=== PATIENT | male | born 1950 | race Caucasian/White ===

== ENCOUNTER 2016-07-02 10:18 | Outpatient (CLI) | payer MEDICARE, OTHER | END 2016-07-02 10:19 | disposition home or self-care (01) | DX: N40.0 Benign prostatic hyperplasia without lower urinary tract symptoms (principal) ==

== ENCOUNTER 2018-01-27 07:20 | Outpatient (CLI) | payer MEDICARE, OTHER | END 2018-01-27 07:21 | disposition home or self-care (01) | LOC: LAB.WCP 07:20 | PROVIDERS: ATTEND Urology | DX: Z12.5 Encounter for screening for malignant neoplasm of prostate (principal) | CPT/HCPCS: 36415; G0103; 84153 ==

== ENCOUNTER 2018-03-18 09:10 | Outpatient (CLI) | payer MEDICARE, OTHER | END 2018-03-18 09:11 | LOC: LAB.WCP 09:10 | PROVIDERS: ATTEND Urology | DX: R31.0 Gross hematuria (principal) | CPT/HCPCS: 36415; 82565; 84520 ==

== ENCOUNTER 2018-04-01 07:15 | Outpatient (CLI) | payer MEDICARE, OTHER ==
[2018-04-01] MEDS ORDERED: IOVERSOL 320 100 ML VIAL IVP ONE ×2 (07:25→07:48)
--- NOTE | 2018-04-01 09:53 | CT Report ---
Reason: GROSS HEMATURIA Procedure Date: 04/01/2018 Accession Number: [id number] / [id number] Procedure: CT - IVP CPT Code: FULL RESULT: EXAM: CT ABDOMEN AND PELVIS WITHOUT AND WITH CONTRAST (CT IVP) EXAM DATE: 04/01/2018 07:31 AM. CLINICAL HISTORY: Gross hematuria. COMPARISONS: None. TECHNIQUE: Routine helical imaging was performed through the kidneys, ureters and bladder in the precontrast, postcontrast and delayed phase. IV Contrast: ISOVUE 320 100mL. Reconstructions: Coronal and sagittal. In accordance with CT protocol optimization, one or more of the following dose reduction techniques were utilized for this exam: automated exposure control, adjustment of mA and/or KV based on patient size, or use of iterative reconstructive technique. FINDINGS: Lung Bases: Unremarkable. Right Kidney/Ureter: 6 cm right upper pole simple renal cyst. No stones, hydronephrosis, or solid masses. Left Kidney/Ureter: No stones, hydronephrosis, or masses. Other Solid Organs: There are multiple bilateral hypodense liver lesions, the largest of which demonstrates An Irregular lobulated margin with an almost nodular appearance. While this is not diagnostic, this is a relatively typical appearance of hemangioma in the late contrast phase presented here. Other hepatic hypodensities are too small to characterize. The spleen, pancreas, gallbladder, and adrenal glands are unremarkable.The bile ducts are unremarkable. Peritoneal Cavity/Bowel: Normal. No free fluid, free air or adenopathy. No masses. Bowel loops are unremarkable. Pelvic Organs: Fiducial markers are noted in the prostate. No bladder stones, obstruction or masses. Vasculature: Mild atherosclerosis. Bones: No aggressive osseous lesions. Other: None. IMPRESSION: Normal CT IVP. No suspicious urinary tract masses, stones or obstruction. Uncharacterized hepatic hypodensities. For definitive characterization, CT multiphase liver protocol or MRI multiphase liver protocol can be considered. RADIA
== END 2018-04-01 07:16 | disposition home or self-care (01) ==
LOC: DI 07:15
PROVIDERS: ATTEND Urology
DX: R31.0 Gross hematuria (principal); K76.9 Liver disease, unspecified
CPT/HCPCS: 74178; Q9967

== ENCOUNTER 2018-07-10 08:00 | Outpatient (CLI) | payer MEDICARE, OTHER | END 2018-07-10 23:59 | disposition home or self-care (01) | LOC: LAB.WCP 08:00 | PROVIDERS: ATTEND Radiology Radiation Oncology | DX: C61 Malignant neoplasm of prostate (principal) | CPT/HCPCS: 36415; 84153 ==

== ENCOUNTER 2018-07-22 07:26 | Outpatient (CLI) | payer MEDICARE, OTHER ==
--- NOTE | 2018-07-22 11:01 | Ultrasound Report ---
Reason: HISTORY OF NEPHROLITHIASIS Procedure Date: 07/22/2018 Accession Number: [id number] / [id number] Procedure: US - Retroperitoneal CPT Code: FULL RESULT: EXAM: RENAL ULTRASOUND EXAM DATE: 07/22/2018 08:00 AM. CLINICAL HISTORY: History of nephrolithiasis. COMPARISON: IVP 04/01/2018 7:31 AM. TECHNIQUE: Real-time scanning was performed with static images obtained. FINDINGS: Right Kidney: 12.1 x 5.5 x 4.9. cm. Normal echotexture with no stones, contour-deforming masses, or hydronephrosis. Exophytic thin-walled anechoic simple cyst measuring 7.9 cm off the superior pole, little changed compared to comparison CT. Left Kidney: 11.8 x 5.2 x 5.6. cm. Normal echotexture with no contour-deforming masses or hydronephrosis. 1 cm exophytic simple-appearing cyst upper pole. 4 mm nonshadowing midpole stone. Bladder: Bilateral jets seen. The prevoid bladder volume was 81.3 cc. The postvoid bladder volume was 59.5 cc. Other: None. IMPRESSION: 1. Stable appearance of large simple cyst of the upper pole right kidney. 2. Nonobstructive left mid pole nephrolithiasis. 3. Small to moderate postvoiding residual. RADIA
== END 2018-07-22 07:27 | disposition home or self-care (01) ==
LOC: DI 07:26
PROVIDERS: ATTEND Urology
DX: N28.89 Other specified disorders of kidney and ureter (principal); N20.0 Calculus of kidney; N28.1 Cyst of kidney, acquired
CPT/HCPCS: 76770

== ENCOUNTER 2018-11-26 08:26 | Outpatient (CLI) | payer MEDICARE, OTHER | END 2018-11-26 08:27 | disposition home or self-care (01) | LOC: LAB.WCP 08:26 | PROVIDERS: ATTEND Urology | DX: C61 Malignant neoplasm of prostate (principal) | CPT/HCPCS: 36415; 84153 ==

== ENCOUNTER 2018-12-04 | Outpatient (CLI) | payer MEDICARE, OTHER | END 2018-12-04 23:59 | disposition home or self-care (01) ==

== ENCOUNTER 2018-12-16 14:49 | Outpatient (CLI) | payer MEDICARE, OTHER ==
--- NOTE | 2018-12-19 14:55 | XRAY Report ---
Reason: KNEE PAIN,RT Procedure Date: 12/16/2018 Accession Number: [id number] / [id number] Procedure: XR - Knee 3 View RT CPT Code: FULL RESULT: EXAM: RIGHT KNEE RADIOGRAPHY EXAM DATE: 12/16/2018 03:03 PM. CLINICAL HISTORY: Right knee pain. COMPARISON: None. TECHNIQUE: 3 views. FINDINGS: Bones: Normal. No fractures or bone lesions. Joints: Minimal spurring. No effusion. No subluxations. Soft Tissues: Unremarkable. IMPRESSION: Mild osteoarthritis. Kellgren Caleb Grade 1. Kellgren and Caleb classification of osteoarthritis: Grade 0: no radiographic features of osteoarthritis are present Grade 1: doubtful joint space narrowing (JSN) and possible osteophytic lipping Grade 2: definite osteophytes and possible JSN on anteroposterior weight-bearing radiograph Grade 3: multiple osteophytes, definite JSN, sclerosis, possible bony deformity Grade 4: large osteophytes, marked JSN, severe sclerosis and definite bony deformity RADIA
== END 2018-12-16 14:50 | disposition home or self-care (01) ==
LOC: DI 14:49
PROVIDERS: ATTEND Physician Assistant Medical
DX: M17.11 Unilateral primary osteoarthritis, right knee (principal)

== ENCOUNTER 2019-06-30 10:30 | Outpatient (CLI) | payer MEDICARE, OTHER | END 2019-06-30 23:59 | disposition home or self-care (01) | LOC: LAB.WCP 10:30 | PROVIDERS: ATTEND Urology | DX: C61 Malignant neoplasm of prostate (principal) | CPT/HCPCS: 36415; 84153 ==

== ENCOUNTER 2020-01-21 09:00 | Outpatient (CLI) | payer MEDICARE, OTHER | END 2020-01-21 23:59 | disposition home or self-care (01) | LOC: LAB.WCP 09:00 | PROVIDERS: ATTEND Radiology Radiation Oncology | DX: Z85.46 Personal history of malignant neoplasm of prostate (principal) | CPT/HCPCS: 36415; 84153 ==

== ENCOUNTER 2020-08-01 15:19 | Outpatient (CLI) | payer MEDICARE, OTHER ==
[2020-08-01 17:43] LABS: BASOPHILS # (AUTO) 0.1 10^3/uL (0.0-0.1); BASOPHILS % (AUTO) 0.8 %; EOSINOPHILS # (AUTO) 0.1 10^3/uL (0.0-0.7); EOSINOPHILS % (AUTO) 2.3 %; HCT - HEMATOCRIT 45.1 % (42.0-52.0); HGB - HEMOGLOBIN 15.3 g/dL (14.0-18.0); LYMPHOCYTES # (AUTO) 1.9 10^3/uL (1.5-3.5); LYMPHOCYTES % (AUTO) 30.9 %; MEAN CORPUSCULAR HEMOGLOBIN 32.1 pg (27.0-31.0); MEAN CORPUSCULAR HGB CONC 33.9 g/dL (32.0-36.0); MEAN CORPUSCULAR VOLUME 94.5 fL (80.0-94.0); MEAN PLATELET VOLUME 10.2 fL (7.4-11.4); MONOCYTES # (AUTO) 0.5 10^3/uL (0.0-1.0); MONOCYTES % (AUTO) 8.8 %; NEUTROPHILS # (AUTO) 3.5 10^3/uL (1.5-6.6); NEUTROPHILS % (AUTO) 56.9 %; PLT - PLATELET COUNT 258 10^3/uL (130-450); RED BLOOD COUNT 4.77 10^6/uL (4.70-6.10); RED CELL DISTRIBUTION WIDTH 13.1 % (12.0-15.0); WHITE BLOOD COUNT 6.1 x10^3/uL (4.8-10.8)
[2020-08-01 18:11] LABS: ALBUMIN 4.3 g/dL (3.2-5.5); ALBUMIN/GLOBULIN RATIO 1.5 (1.0-2.2); ALKALINE PHOSPHATASE 47 IU/L (42-121); ALT ALANINE AMINOTRANSFERASE 20 IU/L (10-60); AST ASPARTATE AMINOTRANSFERASE 20 IU/L (10-42); BILIRUBIN,TOTAL 0.9 mg/dL (0.2-1.0); BUN - BLOOD UREA NITROGEN 21 mg/dL (6-20); CALCIUM 9.1 mg/dL (8.5-10.3); CARBON DIOXIDE - CO2 23 mmol/L (21-32); CHLORIDE 105 mmol/L (101-111); CHOL/HDL RATIO 2.9 (<5.0); CHOLESTEROL 123 mg/dL; CREATININE 0.9 mg/dL (0.6-1.2); GFR - MDRD 83 (>89); GLUCOSE 92 mg/dL (70-100); HDL CHOLESTEROL 42 mg/dL; LDL CHOLESTEROL,CALCULATED 63 mg/dL; LDL/HDL RATIO 1.5 (<3.6); POTASSIUM 4.1 mmol/L (3.5-5.0); SODIUM 136 mmol/L (135-145); TOTAL PROTEIN 7.2 g/dL (6.7-8.2); TRIGLYCERIDES 90 mg/dL; VLDL CHOLESTEROL 18 mg/dL
== END 2020-08-01 23:59 | disposition home or self-care (01) ==
LOC: LAB.WCP 15:19
PROVIDERS: ATTEND Physician Assistant Medical
DX: E78.5 Hyperlipidemia, unspecified (principal); C61 Malignant neoplasm of prostate; J44.9 Chronic obstructive pulmonary disease, unspecified
CPT/HCPCS: 36415; 80053; 80061; 83721; 84153; 85025

== ENCOUNTER 2020-08-25 09:05 | Outpatient (CLI) | payer MEDICARE, OTHER ==
--- NOTE | 2020-08-25 12:30 | CT Report ---
PROCEDURE: Low Dose Lung Cancer Screen INDICATIONS: HX OF SMOKING TECHNIQUE: Noncontrast low-dose 5 mm thick sections acquired from the pulmonary apices to the posterior costophr enic angles. 7 mm thick coronal and sagittal MIP reformats were then acquired. For radiation dose r eduction, the following was used: automated exposure control, adjustment of mA and/or kV according t o patient size. COMPARISON: CT chest 04/29/2015, CT IVP 04/01/2018 FINDINGS: Image quality: Excellent. Lungs and pleura: No effusions or consolidations. No visualized masses or nodules. Mediastinum: Heart size is normal. Unchanged appearance of mild anterior pericardial effusion. No m ediastinal adenopathy by size criteria. Thoracic aorta and central pulmonary arteries are normal in size. Esophagus is normal in caliber. No hiatal hernia. Bones and chest wall: No suspicious bony lesions. No vertebral body compression fractures. No axil amina or supraclavicular adenopathy by size criteria. Thyroid is poorly visualized secondary to artif act. Abdomen: Low-attenuation focus in the anterior superior hepatic dome measures 2.1 cm AP by 2.2 cm tra nsverse compared to 1.4 cm AP by 2.2 cm transverse. Hounsfield units measure approximately 16. Otherw ise, visualized upper abdomen solid organs and bowel loops appear normal in the absence of contrast. IMPRESSION: 1. Lungs are clear. 2. Low-attenuation hepatic structure mildly enlarged with Hounsfield units most suggestive of hepatic cyst. Lung rads category 1. Recommend annual screening follow-up. Reviewed by: Baylee Vivas MD on 08/25/2020 12:29 PM PDT Approved by: Baylee Vivas MD on 08/25/2020 12:29 PM PDT Station ID: [id number]
== END 2020-08-25 09:06 | disposition home or self-care (01) ==
LOC: DI 09:05
PROVIDERS: ATTEND Physician Assistant Medical
DX: Z12.2 Encounter for screening for malignant neoplasm of respiratory organs (principal); R93.2 Abnormal findings on diagnostic imaging of liver and biliary tract; F17.219 Nicotine dependence, cigarettes, with unspecified nicotine-induced disorders

== ENCOUNTER 2021-01-11 14:42 | Outpatient (CLI) | payer MEDICARE, OTHER | END 2021-01-11 23:59 | disposition home or self-care (01) | LOC: LAB.WCP 14:42 | PROVIDERS: ATTEND Radiology Radiation Oncology | DX: C61 Malignant neoplasm of prostate (principal) | CPT/HCPCS: 36415; 84153 ==

== ENCOUNTER 2021-05-09 07:00 | Outpatient (CLI) | payer MEDICARE, OTHER ==
[2021-05-09 18:19] LABS: BASOPHILS % (AUTO) 0.8 %; EOSINOPHILS # (AUTO) 0.2 10^3/uL (0.0-0.7); EOSINOPHILS % (AUTO) 3.2 %; HCT - HEMATOCRIT 47.2 % (42.0-52.0); HGB - HEMOGLOBIN 15.6 g/dL (14.0-18.0); LYMPHOCYTES # (AUTO) 1.7 10^3/uL (1.5-3.5); LYMPHOCYTES % (AUTO) 32.4 %; MEAN CORPUSCULAR HEMOGLOBIN 31.6 pg (27.0-31.0); MEAN CORPUSCULAR HGB CONC 33.1 g/dL (32.0-36.0); MEAN CORPUSCULAR VOLUME 95.7 fL (80.0-94.0); MEAN PLATELET VOLUME 10.3 fL (7.4-11.4); MONOCYTES # (AUTO) 0.6 10^3/uL (0.0-1.0); MONOCYTES % (AUTO) 10.8 %; NEUTROPHILS # (AUTO) 2.8 10^3/uL (1.5-6.6); NEUTROPHILS % (AUTO) 52.4 %; PLT - PLATELET COUNT 260 10^3/uL (130-450); RED BLOOD COUNT 4.93 10^6/uL (4.70-6.10); RED CELL DISTRIBUTION WIDTH 13.3 % (12.0-15.0); WHITE BLOOD COUNT 5.3 x10^3/uL (4.8-10.8)
[2021-05-09 18:34] LABS: ALBUMIN/GLOBULIN RATIO 1.3 (1.0-2.2); ALKALINE PHOSPHATASE 48 IU/L (42-121); ALT ALANINE AMINOTRANSFERASE 16 IU/L (10-60); AST ASPARTATE AMINOTRANSFERASE 16 IU/L (10-42); BILIRUBIN,TOTAL 0.5 mg/dL (0.2-1.0); BUN - BLOOD UREA NITROGEN 25 mg/dL (6-20); CALCIUM 9.2 mg/dL (8.5-10.3); CARBON DIOXIDE - CO2 26 mmol/L (21-32); CHLORIDE 107 mmol/L (101-111); CHOL/HDL RATIO 2.8 (<5.0); CHOLESTEROL 122 mg/dL; GFR - MDRD 73 (>89); GLUCOSE 100 mg/dL (70-100); HDL CHOLESTEROL 44 mg/dL; LDL CHOLESTEROL,CALCULATED 58 mg/dL; LDL/HDL RATIO 1.3 (<3.6); POTASSIUM 4.3 mmol/L (3.5-5.0); SODIUM 141 mmol/L (135-145); TOTAL PROTEIN 7.1 g/dL (6.7-8.2); TRIGLYCERIDES 100 mg/dL; VLDL CHOLESTEROL 20 mg/dL
== END 2021-05-09 23:59 | disposition home or self-care (01) ==
LOC: LAB.WCP 07:00
PROVIDERS: ATTEND Physician Assistant Medical
DX: E78.5 Hyperlipidemia, unspecified (principal); J44.9 Chronic obstructive pulmonary disease, unspecified
CPT/HCPCS: 36415; 80053; 80061; 83721; 85025

== ENCOUNTER 2021-07-27 13:05 | Outpatient (CLI) | payer MEDICARE, OTHER | END 2021-07-27 13:06 | disposition home or self-care (01) | LOC: LAB.N 13:05 | PROVIDERS: ATTEND Urology | DX: C61 Malignant neoplasm of prostate (principal) | CPT/HCPCS: 36415; 84153 ==

== ENCOUNTER 2022-02-06 09:41 | Outpatient (CLI) | payer MEDICARE, OTHER ==
--- NOTE | 2022-02-06 13:42 | XRAY Report ---
PROCEDURE: Abdomen 1 View X-Ray INDICATIONS: NEPHROLITHIASIS TECHNIQUE: One view of the abdomen acquired. COMPARISON: Ultrasound kidneys 07/22/2018 FINDINGS: Surgical changes and devices: None. Bowel: Bowel gas pattern is normal. Soft tissues: No suspicious abdominal calcifications. Visualized solid organ contours appear normal in size. Bones: No suspicious bony lesions. IMPRESSION: Both renal shadows are obscured by fecal debris. Consider follow-up CT Reviewed by: Yung Shook MD on 02/06/2022 12:40 PM AKDT Approved by: Yung Shook MD on 02/06/2022 12:40 PM AKDT Station ID: [id number]
== END 2022-02-06 09:42 | disposition home or self-care (01) ==
LOC: DI 09:41
PROVIDERS: ATTEND Urology
DX: N20.0 Calculus of kidney (principal)

== ENCOUNTER 2022-09-27 13:58 | Outpatient (CLI) | payer MEDICARE, OTHER | END 2022-09-27 13:59 | disposition home or self-care (01) | LOC: LAB.N 13:58 | PROVIDERS: ATTEND Physician Assistant Medical | DX: C61 Malignant neoplasm of prostate (principal) | CPT/HCPCS: 36415; 84153 ==

== ENCOUNTER 2022-11-28 07:27 | Outpatient (CLI) | payer MEDICARE, OTHER ==
--- NOTE | 2022-11-28 10:05 | CT Report ---
PROCEDURE: Low Dose Lung Cancer Screen INDICATIONS: SMOKER TECHNIQUE: A CT scan of the chest was performed. Intravenous contrast media was not administered. Images were re corded and evaluated at appropriate window settings. Reformats: axial MIP of the chest, coronal and s agittal. For radiation dose reduction, the following was used: automated exposure control, adjustment of mA and/or kV according to patient size. COMPARISON: Chest, 08/25/2020. FINDINGS: Image quality: Excellent. Lungs and pleura: No pleural effusions. No pneumothorax. No suspicious pulmonary nodules which requi re follow up. Mediastinum: Heart size is normal. Severe coronary artery atherosclerosis. No pericardial effusion. N o large vessel abnormality. No mediastinal adenopathy by size criteria. Small hiatal hernia. Chest wall and lower neck: Thyroid is unremarkable. No axillary or supraclavicular adenopathy by size . Bones: There is a comminuted sternal fracture, new since the last exam. No aggressive osseous abnorm ality. Upper Abdomen: There is a 4 mm stone in left kidney. No hydronephrosis. A 8.7 x 6.5 cm cyst is seen i n the superior pole of the right kidney. A couple of hypodense nodules in liver most likely cysts. IMPRESSION: 1. Lung RADS: 1 - Negative. Recommendation: Continue annual screening in 12 Months with LDCT 2. Comminuted sternal fracture, new since the last exam. Recommend clinical correlation for history o f trauma. If no history of trauma, this could represent a pathological fracture. 3. Please see body of report for other mediastinal findings. Reviewed by: Roe Jim MD on 11/28/2022 10:04 AM PDT Approved by: Roe Jim MD on 11/28/2022 10:04 AM PDT Station ID: [id number]
--- NOTE | 2022-11-28 13:11 | XRAY Report ---
PROCEDURE: Abdomen 1 View X-Ray INDICATIONS: NEPHROLITHIASIS TECHNIQUE: One view of the abdomen acquired. COMPARISON: CT 02/06/2022 FINDINGS: Surgical changes and devices: None. Bowel: Bowel gas pattern is normal. Soft tissues: No suspicious abdominal calcifications. Visualized solid organ contours appear normal in size. Bones: No suspicious bony lesions. IMPRESSION: No acute abdominal pathology. No visualized calcifications overlying the visualized renal shadows. Reviewed by: Baylee Vivas MD on 11/28/2022 1:10 PM PDT Approved by: Baylee Vivas MD on 11/28/2022 1:10 PM PDT Station ID: [id number]
== END 2022-11-28 07:28 | disposition home or self-care (01) ==
LOC: DI 07:27
PROVIDERS: ATTEND Physician Assistant Medical
DX: Z12.2 Encounter for screening for malignant neoplasm of respiratory organs (principal); F17.210 Nicotine dependence, cigarettes, uncomplicated; N20.0 Calculus of kidney; S22.20XA Unspecified fracture of sternum, initial encounter for closed fracture; I25.10 Atherosclerotic heart disease of native coronary artery without angina pectoris; K44.9 Diaphragmatic hernia without obstruction or gangrene; N28.1 Cyst of kidney, acquired

== ENCOUNTER 2023-08-07 07:36 | Outpatient (CLI) | payer MEDICARE, OTHER ==
[2023-08-07 12:04] LABS: BASOPHILS # (AUTO) 0.1 10^3/uL (0.0-0.1); BASOPHILS % (AUTO) 1.1 %; EOSINOPHILS # (AUTO) 0.3 10^3/uL (0.0-0.7); EOSINOPHILS % (AUTO) 5.2 %; HCT - HEMATOCRIT 47.2 % (42.0-52.0); HGB - HEMOGLOBIN 15.3 g/dL (14.0-18.0); LYMPHOCYTES # (AUTO) 2.2 10^3/uL (1.5-3.5); LYMPHOCYTES % (AUTO) 41.3 %; MEAN CORPUSCULAR HEMOGLOBIN 31.3 pg (27.0-31.0); MEAN CORPUSCULAR HGB CONC 32.4 g/dL (32.0-36.0); MEAN CORPUSCULAR VOLUME 96.5 fL (80.0-94.0); MEAN PLATELET VOLUME 10.8 fL (7.4-11.4); MONOCYTES # (AUTO) 0.6 10^3/uL (0.0-1.0); NEUTROPHILS # (AUTO) 2.2 10^3/uL (1.5-6.6); NEUTROPHILS % (AUTO) 41.2 %; PLT - PLATELET COUNT 240 10^3/uL (130-450); RED BLOOD COUNT 4.89 10^6/uL (4.70-6.10); RED CELL DISTRIBUTION WIDTH 13.4 % (12.0-15.0); WHITE BLOOD COUNT 5.4 x10^3/uL (4.8-10.8)
[2023-08-07 12:23] LABS: ALBUMIN 4.1 g/dL (3.2-5.5); ALBUMIN/GLOBULIN RATIO 1.4 (1.0-2.2); ALKALINE PHOSPHATASE 47 IU/L (42-121); ALT ALANINE AMINOTRANSFERASE 13 IU/L (10-60); AST ASPARTATE AMINOTRANSFERASE 17 IU/L (10-42); BILIRUBIN,TOTAL 0.6 mg/dL (0.2-1.0); BUN - BLOOD UREA NITROGEN 26 mg/dL (6-20); CALCIUM 9.5 mg/dL (8.5-10.3); CARBON DIOXIDE - CO2 25 mmol/L (21-32); CHLORIDE 110 mmol/L (101-111); CHOL/HDL RATIO 2.9 (<5.0); CHOLESTEROL 115 mg/dL; GFR - MDRD 73 (>89); GLUCOSE 98 mg/dL (74-104); HDL CHOLESTEROL 40 mg/dL; LDL CHOLESTEROL,CALCULATED 50 mg/dL; LDL/HDL RATIO 1.3 (<3.6); POTASSIUM 4.4 mmol/L (3.5-4.5); SODIUM 140 mmol/L (135-145); TRIGLYCERIDES 125 mg/dL (48-352); VLDL CHOLESTEROL 25 mg/dL
== END 2023-08-07 07:37 | disposition home or self-care (01) ==
LOC: LAB.N 07:36
PROVIDERS: ATTEND Physician Assistant Medical
DX: E78.5 Hyperlipidemia, unspecified (principal); J44.9 Chronic obstructive pulmonary disease, unspecified
CPT/HCPCS: 36415; 80053; 80061; 83721; 85025

== ENCOUNTER 2023-12-25 08:32 | Outpatient (CLI) | payer MEDICARE, OTHER | END 2023-12-25 08:33 | disposition home or self-care (01) | LOC: LAB.N 08:32 | PROVIDERS: ATTEND Physician Assistant Medical | DX: Z85.46 Personal history of malignant neoplasm of prostate (principal) | CPT/HCPCS: 36415; 84153 ==

== ENCOUNTER 2023-12-25 11:13 | Outpatient (CLI) | payer MEDICARE, OTHER ==
--- NOTE | 2023-12-25 22:11 | XRAY Report ---
PROCEDURE: Abdomen 1 V INDICATIONS: NEPHROLITIASIS TECHNIQUE: One view of the abdomen acquired. COMPARISON: Prior KUB dated 11/28/2022 FINDINGS: Surgical changes and devices: None. Bowel: Bowel gas pattern is normal. Soft tissues: No suspicious abdominal calcifications. Visualized solid organ contours appear normal in size. Bones: No suspicious bony lesions. IMPRESSION: No radiopaque renal stones. Note, the pelvis including the urinary bladder is not included on the may m. Reviewed by: MARKELL Perales on 12/25/2023 10:10 PM PDT Approved by: Baylee Vivas MD on 12/25/2023 10:10 PM PDT Station ID: [id number]
== END 2023-12-25 11:14 | disposition home or self-care (01) ==
LOC: DI 11:13
PROVIDERS: ATTEND Physician Assistant Medical
DX: N20.0 Calculus of kidney (principal); Z85.46 Personal history of malignant neoplasm of prostate
CPT/HCPCS: 36415; 84153